=== PATIENT | male | born 1970 | race African-American/Black ===

== ENCOUNTER 2017-05-28 12:30 | Emergency (ER) | payer SELFPAY ==
[2017-05-28 12:42] VITALS: BP 121/66
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
[2017-05-28] MEDS ORDERED: NS 0.9% 1000 ML* 1,000 ML IV ONE (13:06)
== END 2017-05-28 13:05 | disposition short-term general hospital (02) ==
LOC: EDBD → UCEAST 12:30
DX: S09.90XA Unspecified injury of head, initial encounter (principal); W17.89XA Other fall from one level to another, initial encounter; S00.83XA Contusion of other part of head, initial encounter; F17.210 Nicotine dependence, cigarettes, uncomplicated
CPT/HCPCS: 99203; G0463